=== PATIENT | female | born 1935 | race Caucasian/White ===

== ENCOUNTER → 2017-06-01 | Emergency (ER) | payer OTHER ==
[~2017-06-01] VITALS: Ht 167.6 cm; Wt 64.4 kg
[~2017-06-01] MED LIST: AMLODIPINE BESYL5 MG; ARICEPT5 MG; COZAAR50 MG; DOLOGESIC-DF 51 EACH PO; LEVOTHYROXINE50 MCG; LIPITOR40 MG; METFORMIN HCL750 MG; OMEPRAZOLE20 M1; PLAVIX75 MG; PROPRANOLOL HCL20 MG; RIVASTIGMINE3 MG; VITAMIN B122500 MC1
== END | disposition home or self-care (01) ==
LOC: ER 19:04
DX: R53.1 Weakness (principal); R10.13 Epigastric pain; F41.8 Other specified anxiety disorders